=== PATIENT | male | born 1965 | race Caucasian/White ===

== ENCOUNTER 2021-01-01 15:38 | Emergency (ER) | payer OTHER ==
[~2021-01-01] VITALS: Ht 185.4 cm; Wt 102.7 kg
[2021-01-01] MEDS ORDERED: DIPH,PERTUSS(ACELL),TET VAC/PF 0.5 ML SYRINGE. VAX IM ONE (16:00)
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
[2021-01-01 16:53] VITALS: BP 110/70
== END 2021-01-01 16:57 | disposition home or self-care (01) ==
LOC: ER 15:38
DX: S00.81XA Abrasion of other part of head, initial encounter (principal); W22.8XXA Striking against or struck by other objects, initial encounter; Y93.89 Activity, other specified; Y92.89 Other specified places as the place of occurrence of the external cause; Y99.8 Other external cause status
CPT/HCPCS: 90471; 90715; 99283